=== PATIENT | male | born 1960 | race American Indian/Alaskan Native ===

== ENCOUNTER 2021-08-19 17:38 | Emergency (ER) | payer MEDICARE ==
[2021-08-19] MEDS ORDERED: SODIUM CHLORIDE 0.9% 1000 ML 1,000 ML IV ONE (17:47)
--- NOTE | 2021-08-19 17:52 | Emergency Department Report ---
ED Seizure HPI - General Stated Complaint: SEIZURE Time Seen by Provider: 08/19/21 17:47 Source: patient, EMS - History of Present Illness Initial Comments: Patient is 61 years old male with history of seizure, on Keppra, history of CVA with left-sided residual. Patient brought to the emergency room via EMS from home for evaluation of generalized tonic clonic seizure x3 started this morning. Patient stated that he is visiting his daughter from another city and he did not bring his Keppra with him. Patient denied any fever or chills. No head injury, headache, neck pain, chest pain, abdominal pain, nausea or vomiting. MD Complaint: seizure -: This morning Description of Episode: loss of consciousness, tonic-clonic movement, post-event confusion Witnessed:: Yes Trauma: No Seizure History: known seizure disorder Place: home Possible Precipitating Event: none Associated Symptoms: denies other symptoms Treatments Prior to Arrival: none - Related Data Allergies Allergy/AdvReac Type Severity Reaction Status Date / Time No Known Allergies Allergy Unverified 08/19/21 17:59 ED Review of Systems ROS: Stated complaint: SEIZURE Other details as noted in HPI Comment: All other systems reviewed and negative Constitutional: denies: chills, fever Respiratory: denies: cough, shortness of breath, SOB with exertion, SOB at rest Cardiovascular: denies: chest pain, palpitations Gastrointestinal: denies: abdominal pain, nausea, vomiting, diarrhea, constipation, hematemesis, melena Musculoskeletal: denies: back pain Neurological: denies: headache, weakness, numbness, paresthesias, confusion Psychiatric: denies: anxiety, depression, auditory hallucinations, visual hallucinations, homicidal thoughts ED Physical Exam - General General appearance: alert, in no apparent distress - Head Head exam: Present: atraumatic, normocephalic, normal inspection - Eye Eye exam: Present: normal appearance, PERRL - ENT ENT exam: Present: normal exam, normal orophraynx, mucous membranes moist - Neck Neck exam: Present: normal inspection, full ROM. Absent: tenderness, menin gismus - Respiratory Respiratory exam: Present: normal lung sounds bilaterally - Cardiovascular Cardiovascular Exam: Present: regular rate, normal rhythm, normal heart sounds - GI/Abdominal GI/Abdominal exam: Present: soft, normal bowel sounds. Absent: distended, tenderness, guarding, rebound, rigid, organomegaly, mass, bruit, pulsatile mass, hernia - Extremities Exam Extremities exam: Present: normal inspection, full ROM, normal capillary refill. Absent: tenderness, pedal edema, joint swelling, calf tenderness - Back Exam Back exam: Present: normal inspection, full ROM. Absent: CVA tenderness (R), CVA tenderness (L) - Neurological Exam Neurological exam: Present: alert, oriented X3, CN II-XII intact, motor sensory deficit (Left-sided weakness, chronic.) - Psychiatric Psychiatric exam: Present: normal mood - Skin Skin exam: Present: warm, intact, normal color ED Course Vital Signs 08/19/21 08/19/21 08/19/21 17:50 17:51 18:01 Temperature Pulse Rate 124 H 136 H 125 H Respiratory 27 H 33 H 35 H Rate Blood Pressure 164/109 164/109 Blood Pressure [Right] O2 Sat by Pulse 97 97 98 Oximetry 08/19/21 08/19/21 08/19/21 18:15 18:31 18:45 Temperature Pulse Rate 117 H 125 H 107 H Respiratory 35 H 33 H 30 H Rate Blood Pressure 164/109 143/105 152/93 Blood Pressure [Right] O2 Sat by Pulse 98 100 100 Oximetry 08/19/21 08/19/21 08/19/21 19:01 19:23 19:31 Temperature Pulse Rate 112 H 113 H 107 H Respiratory 29 H 32 H 30 H Rate Blood Pressure 148/99 148/99 148/99 Blood Pressure [Right] O2 Sat by Pulse 99 Oximetry 08/19/21 08/19/21 08/19/21 19:45 20:01 20:15 Temperature Pulse Rate 105 H 105 H 114 H Respiratory 28 H 28 H 31 H Rate Blood Pressure 153/98 146/95 146/95 Blood Pressure [Right] O2 Sat by Pulse 96 95 95 Oximetry 08/19/21 08/19/21 08/19/21 20:31 20:45 21:01 Temperature Pulse Rate 110 H 110 H 103 H Respiratory 30 H 22 28 H Rate Blood Pressure 149/104 149/104 151/120 Blood Pressure [Right] O2 Sat by Pulse 96 95 95 Oximetry 08/19/21 08/19/21 08/19/21 21:15 21:31 21:45 Temperature Pulse Rate 105 H 101 H 98 H Respiratory 28 H 27 H 26 H Rate Blood Pressure 151/120 144/102 144/102 Blood Pressure [Right] O2 Sat by Pulse 96 94 95 Oximetry 08/19/21 08/19/21 08/19/21 22:01 22:15 22:20 Temperature 98.0 F Pulse Rate 104 H 110 H 103 H Respiratory 27 H 36 H 28 H Rate Blood Pressure 151/100 151/100 Blood Pressure 151/120 [Right] O2 Sat by Pulse 96 96 Oximetry 08/19/21 22:21 Temperature Pulse Rate Respiratory 28 H Rate Blood Pressure Blood Pressure [Right] O2 Sat by Pulse 95 Oximetry ED Medical Decision Making - Lab Data Result diagrams: 08/19/21 17:57 08/19/21 17:57 - Medical Decision Making Patient is 61 years old male with history of seizure, on Keppra, history of CVA with left-sided residual. Patient brought to the emergency room via EMS from home for evaluation of generalized tonic clonic seizure x3 started this morning. Patient stated that he is visiting his daughter from another city and he did not bring his Keppra with him. Patient denied any fever or chills. No head injury, headache, neck pain, chest pain, abdominal pain, nausea or vomiting. Patient had another generalized tonic-clonic seizure witnessed by the nurse. Patient received Ativan. Patient also received Keppra 1 g IV. Family also i ndicated that patient had history of alcohol withdrawal seizure. Patient received another Ativan. Patient now is alert, oriented x3 no acute distress. Labs reviewed and is unremarkable except for slightly elevated liver enzyme most likely related to alcohol however patient strongly advised to follow-up with his primary care physician in the next 2 to 3 days. I wrote for Keppra 1 g twice daily. Patient advised to return to the ER if he develop any new symptoms. Critical care attestation.: If time is entered above; I have spent that time in minutes in the direct care of this critically ill patient, excluding procedure time. ED Disposition Clinical Impression: Seizure, Alcohol withdrawal Disposition: 01 HOME / SELF CARE / HOMELESS Is pt being admited?: No Condition: Stable Instructions: Alcohol Withdrawal Syndrome, [id number], Seizure, Adult Referrals: PRIMARY CARE, [Primary Care Provider] - 3-5 Days
[2021-08-19] MEDS ORDERED: ONDANSETRON 4 MG/2 ML INJ IV ONE (18:21)
[2021-08-19 18:31] LABS: Basophils % (Auto) 0.4 % (0.0-1.8); Hematocrit 39.9 % (35.5-45.6); Hemoglobin 12.8 gm/dl (11.8-15.2); Lymphocytes # (Auto) 0.7 K/mm3 (1.2-5.4); Lymphocytes % (Auto) 8.5 % (13.4-35.0); Mean Corpuscular HGB Conc 32 % (32-34); Mean Corpuscular Volume 92 fl (84-94); Monocytes # (Auto) 0.5 K/mm3 (0.0-0.8); Monocytes % (Auto) 5.6 % (0.0-7.3); Platelet Count 159 K/mm3 (140-440); Red Blood Count 4.32 M/mm3 (3.65-5.03); Red Cell Distribution Width 15.5 % (13.2-15.2)
[2021-08-19 18:49] LABS: Alanine Aminotransferase 247 units/L (7-56); Albumin 4.5 g/dL (3.9-5); BUN/Creatinine Ratio 9; Bilirubin,Direct 0.4 mg/dL (0-0.2); Blood Urea Nitrogen 8 mg/dL (9-20); Calcium 9.8 mg/dL (8.4-10.2); Hemolysis Index 121
[2021-08-19] MEDS ORDERED: levETIRAcetam 1000 MG/NS 0.75% 1,000 MG/100 ML BAG IV ONE (19:00)
[2021-08-19] MEDS ORDERED: LORazepam 2 MG/ML VIAL ONE ×2 (19:27→22:39)
[2021-08-19] MEDS ORDERED: LORazepam 2 MG/ML VIAL IV ONE ×2 (20:03→22:42)
[2021-08-20 00:35] VITALS: BP 150/100
== END 2021-08-20 00:35 | disposition home or self-care (01) ==
LOC: ED 17:38
DX: G40.909 Epilepsy, unspecified, not intractable, without status epilepticus (principal); F10.239 Alcohol dependence with withdrawal, unspecified
CPT/HCPCS: 36415; 80048; 80076; 85025; 96365; 96375; 96376; 99284; J1953; J2060; J2405; J7030; Q0162